=== PATIENT | male | born 1960 | race Caucasian/White ===

== ENCOUNTER 2024-11-12 06:29 | Day surgery (SDC) | payer MEDICARE, OTHER, SELFPAY ==
[2024-11-12 14:22] VITALS: BMI 43.3
[2024-11-12 14:23] VITALS: BP 131/66; BMI 43.3
[2024-11-12 14:25] LABS: Glucose - Point of Care 189 mg/dl (70-99)
[2024-11-12 17:16] VITALS: BP 114/59
[2024-11-12 17:30] VITALS: BP 126/55
[2024-11-12 17:45] VITALS: BP 143/69
[2024-11-12 18:00] VITALS: BP 137/77
== END 2024-11-12 18:35 | disposition home or self-care (01) ==
LOC: SDS 06:29
PROVIDERS: ATTENDING PHYSICIAN Internal Medicine Gastroenterology
DX: D49.0 Neoplasm of unspecified behavior of digestive system (principal); K31.89 Other diseases of stomach and duodenum; K22.89 Other specified disease of esophagus; R59.0 Localized enlarged lymph nodes; K80.20 Calculus of gallbladder without cholecystitis without obstruction; K86.9 Disease of pancreas, unspecified; K22.81 Esophageal polyp; C15.9 Malignant neoplasm of esophagus, unspecified; R13.10 Dysphagia, unspecified; K63.89 Other specified diseases of intestine; C16.0 Malignant neoplasm of cardia; K31.A14 Gastric intestinal metaplasia without dysplasia, involving the cardia; C77.2 Secondary and unspecified malignant neoplasm of intra-abdominal lymph nodes
CPT/HCPCS: 43242; 43239; 88172; 88173; 88305; 82962; 88341; 88342; 88360